=== PATIENT | male | born 1980 | race African-American/Black ===

== ENCOUNTER 2020-09-03 17:17 | Emergency (ER) | payer OTHER ==
[~2020-09-03 17:17] MED LIST: ASPIRIN EC81 MG PO; BACLOFEN 10MG T10 MG PO; BACTRIM DS TAB1 EACH PO; IBUPROFEN800 MG PO; MEDROL 4MG DOSEP4 MG PO; NAPROXEN500 MG PO
[2020-09-03 17:59] LABS: BASOPHIL 0.7 % (0-2); EOSINOPHIL 1.1 % (0-5); HCT 46.9 % (42.0-52.0); HGB 15.3 g/dl (13.2-18.0); LYMPHOCYTE 53.1 % (15-48); MCH 29.5 pg (25.0-31.0); MCHC 32.6 g/dL (32.0-36.0); MCV 90.4 fL (78.0-100.0); MONOCYTE 10.8 % (0-12); MPV 9.2 fL (6.0-9.5); NEUTROPHIL 33.9 % (41-80); NRBC 0; PLT 211 K/uL (150-400); RBC 5.19 M/uL (4.70-6.00); RDW 12.5 % (11.5-14.0)
[2020-09-03 18:00] LABS: WBC 2.8 K/uL (4.0-10.5)
[2020-09-03 18:15] LABS: ALBUMIN 3.6 g/dL (3.4-5.0); BILIRUBIN - TOTAL 0.3 mg/dL (0.2-1.0); BUN/CREAT RATIO (CALC) 10.6 RATIO; CREATININE 1.13 mg/dL (0.67-1.17); GLOBULIN (CALCULATION) 3.5 g/dL; POTASSIUM 4.3 mmol/L (3.5-5.1); TOTAL PROTEIN 7.1 g/dL (6.4-8.2)
== END 2020-09-03 22:35 | disposition home or self-care (01) ==
LOC: FER 17:17
PROVIDERS: Emergency Medicine
DX: R07.89 Other chest pain (principal); R06.02 Shortness of breath; I25.2 Old myocardial infarction; F17.200 Nicotine dependence, unspecified, uncomplicated; Z20.2 Contact with and (suspected) exposure to infections with a predominantly sexual mode of transmission
CPT/HCPCS: 36415; 71045; 80053; 84484; 85025; 93005; J0696